=== PATIENT | male | born 2000 | race Caucasian/White ===

== ENCOUNTER 2022-11-14 09:04 | Inpatient (IN) | payer OTHER, SELFPAY ==
[2022-11-14 09:15] VITALS: BP 127/81; PULSE 89; RESP 16; TEMP 36.6; O2SAT 99; BMI 24.2
--- NOTE | 2022-11-14 09:33 | CRLHL7_ITS ---
For Patients: As a result of the Century Cures Act, medical imaging exams and procedure reports are released immediately into your electronic medical record. You may view this report before your referring provider. If you have questions, please contact your health care provider. INDICATION: Swelling. TECHNIQUE: Three views of the right foot were obtained. COMPARISON : None. FINDINGS: There is swelling of the foot soft tissues. There are findings suspicious for a small bone excrescence emanating from the dorsal surface of the 1st metatarsal proximal metaphysis seen on the lateral exam which may be the sequelae of old trauma or possibly osteochondroma. Bone density is normal. No fracture or osteonecrosis is identified. The joints of the hindfoot, midfoot and forefoot are unremarkable. IMPRESSION: 1. No acute bone or joint abnormality. 2. Soft tissue swelling. 3. Findings suspicious for small bone excrescence emanating from the dorsal surface of the 1st toe proximal metaphysis possibly the sequelae of previous trauma or osteochondroma. Dictated by Tucker Smith MD @ 11/14/2022 9:59:43 AM (Electronically Signed)
--- NOTE | 2022-11-14 09:34 | ED_ITS ---
HPI - Extremity Injury (Lower) General Chief Complaint: Extremity Pain/Injury, Lower Stated Complaint: Rt foot infected Time Seen by Provider: 11/14/22 09:27 History of Present Illness HPI Narrative: Patient is a 22-year-old gentleman who overall is in good health who unfortunately scraped his right foot in [place] 5 days ago. He developed redness over the lateral superior aspect of the foot he was placed on Bactrim and doxycycline 2 days ago. The redness has worsened the swelling has worsened and the pain has worsened. Pain is moderate and localized to the superior labs are all aspect of the right foot. Patient has had some nausea and vomiting as well as general malaise. Related Data Home Medications Medication Instructions Recorded Confirmed bupropion HCl 300 mg 24 hr tablet, 300 mg PO QAM 11/11/22 11/14/22 extended release (Wellbutrin XL) lithium carbonate 300 mg capsule 300 mg PO .ud 11/11/22 11/14/22 Previous Rx's Medication Instructions Recorded doxycycline hyclate 100 mg capsule 100 mg PO BID 10 days #20 caps 11/11/22 sulfamethoxazole 800 2 tab PO BID 10 days #40 tabs 11/12/22 mg-trimethoprim 160 mg tablet (Bactrim DS) Allergies Allergy/AdvReac Type Severity Reaction Status Date / Time No Known Drug Allergies Allergy Verified 11/12/22 08:19 Review of Systems Status of ROS: Reports: 10 or more systems reviewed and unremarkable except as noted in History and below [facility] Social History Smoking Status: Never smoker Exam Narrative: Exam Narrative: EXAM GENERAL: Patient appears comfortable and well. EYES: No scleral icterus. ENT: Tympanic membranes and oropharynx normal. THYROID: no thyroid nodules or thyromegaly. LYMPH: No supraclavicular or cervical lymphadenopathy. SKIN: Visible skin seen during exam normal or with benign process only. EXT: Redness and swelling noted over the superior lateral foot on the right. This extends to the anterior aspect of the right ankle. HEART: Regular rate and rhythm with no murmurs, rubs, or gallops. LUNGS: Clear to auscultation bilaterally with no crackles or wheezes. ABD: Soft, non tender, non distended. PSYCH: Good eye contact, speech is not pressured. Const: Vital Signs, click to edit/add: Vital Signs - 24 hr 11/14/22 09:15 Temperature 98 F Pulse Rate [Pulse Oximeter] 89 Respiratory Rate 16 Blood Pressure [Ri ght Upper Arm] 127/81 Pulse Oximetry 99 Oxygen Delivery Me thod Room Air Course Course Hospital Course: Patient seen examined x-ray of the right foot CRP ESR CBC basic metabolic panel blood cultures x2 collected. Vital Signs Vital signs: Initial Vital Signs Temperature 98 F 11/14/22 09:15 Temperature Source Temporal Artery Scan 11/14/22 09:15 Pulse Rate 89 11/14/22 09:15 Respiratory Rate 16 11/14/22 09:15 Blood Pressure 127/81 11/14/22 09:15 Blood Pressure Mean 96 11/14/22 09:15 Blood Pressure Position Supine 11/14/22 09:15 Pulse Oximetry 99 11/14/22 09:15 Oxygen Delivery Method Room Air 11/14/22 09:15 Vital Signs Temperature 98 F 11/14/22 09:15 Pulse Rate 89 11/14/22 09:15 Respiratory Rate 16 11/14/22 09:15 Blood Pressure 127/81 11/14/22 09:15 Pulse Oximetry 99 11/14/22 09:15 Oxygen Delivery Method Room Air 11/14/22 09:15 Temperature 98 F 11/14/22 09:15 Pulse Rate 89 11/14/22 09:15 Respiratory Rate 16 11/14/22 09:15 Blood Pressure 127/81 11/14/22 09:15 Pulse Oximetry 99 11/14/22 09:15 Oxygen Delivery Method Room Air 11/14/22 09:15 MDM - Extremity Injury (Lower) MDM Narrative Medical decision making narrative: Patient is a 22-year-old gentleman comes in today with cellulitis of his right foot. He scraped his foot in a pond in [facility] near [place] over the weekend. He has failed doxycycline and Bactrim. We did collect blood cultures as well as laboratory studies sedimentation rate and CRP were elevated. I did review his x-ray which does not appear to show any acute abnormalities. I did speak with the hospitalist and they are accepting patient for further treatment including IV antibiotics and possible MRI of the foot. Differential Diagnosis Differential diagnosis: Likely ankle sprain and strain, acute internal derangement of knee, puncture wound of foot and fracture of toe Lab Data Labs: Lab Results 11/14/22 Range/Units 10:00 WBC 7.86 (4.50-11.00) K/uL RBC 4.66 (4.30-5.90) m/uL Hgb 14.4 (13.5-17.5) gm/dL Hct 43.1 (37.0-53.0) % MCV 93 (80-100) fL MCH 31 (26-34) pg MCHC 33 (32-36) gm/dL RDW Coeff of Josefina 12.3 (11.5-15.5) % Plt Count 269 (140-440) K/uL Neut % (Auto) 80.8 H (42.0-72.0) % Lymph % (Auto) 10.7 L (20-44) % Upson % (Auto) 7.1 (0.0-11.0) % Eos % (Auto) 1.3 (0.0-7.0) % Baso % (Auto) 0.1 (0.0-3.0) % Neut # (Auto) 6.40 (1.7-7.0) K/uL Lymph # (Auto) 0.80 L (0.90-2.90) K/uL Upson # (Auto) 0.60 (0.00-0.90) K/UL Eos # (Auto) 0.10 (0.00-0.50) K/uL Baso # (Auto) 0.01 (0.00-0.30) K/uL ESR 22 H (2-15) mm/hr Sodium 139 (135-149) mmol/L Potassium 4.6 (3.6-5.1) mmol/L Chloride 99 (96-114) mmol/L Carbon Dioxide 28 (20-32) mmol/L BUN 18 (5-24) mg/dL Creatinine 1.3 (0.5-1.5) mg/dL Estimated Creat Clear 79.07 Estimated GFR 79 ml/min Glucose 87 (60-115) mg/dL Calcium 10.1 (8.4-10.6) mg/dL C-Reactive Protein 5.3 H (0.5-1.0) mg/dL Discharge Plan Discharge Clinical Impression: Cellulitis Patient Disposition: Admitted As Inpatient Condition: Stable Activity Level: No Restrictions Discharge Diet: Regular Prescriptions: No Action lithium carbonate 300 mg capsule 300 mg PO .ud Rx Instructions: 2 capsules qam/ 3 capsules at qhs bupropion HCl [Wellbutrin XL] 300 mg tablet extended release 24 hr 300 mg PO QAM doxycycline hyclate 100 mg capsule 100 mg PO BID 10 Days Qty: 20 0RF sulfamethoxazole-trimethoprim [Bactrim DS] 800-160 mg tablet 2 tab PO BID 10 Days Qty: 40 0RF Follow Up/Referrals: Jose R Chen MD [Primary Care Provider] -
--- NOTE | 2022-11-14 09:37 | ED.NURSE ---
Headsup to House Sup regarding admission.
[2022-11-14 10:19] LABS: Basophils Absolute Auto 0.01 K/uL (0.00-0.30); Basophils Percent Auto 0.1 % (0.0-3.0); Eosinophils Percent Auto 1.3 % (0.0-7.0); Hematocrit 43.1 % (37.0-53.0); Hemoglobin* 14.4 gm/dL (13.5-17.5); Lymphocytes Percent Auto 10.7 % (20-44); Mean Corpuscular HGB Conc 33 gm/dL (32-36); Mean Corpuscular Hemoglobin 31 pg (26-34); Mean Corpuscular Volume 93 fL (80-100); Monocytes Percent Auto 7.1 % (0.0-11.0); Neutrophils Percent Auto 80.8 % (42.0-72.0); Platelet Count* 269 K/uL (140-440); RDW Coefficient of Variation % 12.3 % (11.5-15.5); Red Blood Count 4.66 m/uL (4.30-5.90); White Blood Count* 7.86 K/uL (4.50-11.00)
[2022-11-14 10:24] LABS: Slide Review Reflex No
[2022-11-14 10:30] LABS: Chloride* 99 mmol/L (96-114); Potassium* 4.6 mmol/L (3.6-5.1); Sodium* 139 mmol/L (135-149)
[2022-11-14 10:32] LABS: Creatinine* 1.3 mg/dL (0.5-1.5); Est. Creatinine Clearance* 79.07; Estimated Glomerular Filt Rate 79 ml/min
[2022-11-14 10:33] LABS: Blood Urea Nitrogen* 18 mg/dL (5-24); Carbon Dioxide* 28 mmol/L (20-32); Glucose* 87 mg/dL (60-115)
[2022-11-14 10:34] LABS: Calcium* 10.1 mg/dL (8.4-10.6)
[2022-11-14 10:36] LABS: C Reactive Protein* 5.3 mg/dL (0.5-1.0)
[2022-11-14 11:00] LABS: Erythrocyte SedimentationRate* 22 mm/hr (2-15)
--- NOTE | 2022-11-14 11:42 | ED.NURSE ---
Report given to M/S RN.
[2022-11-14 12:00] VITALS: O2SAT 96
--- NOTE | 2022-11-14 12:47 | P.IMHP_ITS ---
Hospitalist- H&P: HPI History of Present Illness Date Seen: 11/14/22 Chief complaint: Rt foot infected Narrative: Clay Gibson is a 22 year old male presented to the emergency room today for persistent erythema and pain of his right foot. Patient was [place] near [place] last weekend, hit his foot on something and initially thought he had just jammed his right 5th toe, but then noted a small cut on bottom of his foot. 2 days after swimming, he had significant pain over the bottom of the foot, in addition to erythema and edema. He was seen in the urgent care, given an injection of PCN, then an Rx for doxycycline. He was unable to get the doxycycline, so he really turned to urgent care and was given prescription of Bactrim. He has had 4 doses of Bactrim, but symptoms have persisted. This morning, he also noted nausea and headache and vomited once prior to ER arrival. ER Course and Findings: - normal WBC, elevated CRP and ESR - no acute abnormalities on x-ray Patient admitted to the hospital given failure of outpatient antibiotics and worsening clinical symptoms. Medical history updated below. Last Td2012. Review of Systems Status of ROS: Reports: 10 or more systems reviewed and unremarkable except as noted in History and below Narrative: No chest pain, no dyspnea, no other skin concerns Nausea has improved and he has ordered lunch upon arrival to the floor [facility] Medical History (Updated 11/14/22 @ 13:54 by Shivani Zaragoza MD) Bipolar 1 disorder ?F31.9 - Bipolar disorder, unspecified (ICD-10) Social History (Updated 11/14/22 @ 13:53 by Shivani Zaragoza MD) Narrative: Patient lives with father in [place], working for [employer]. Nonsmoker, rare EtOH. Father Leroy would be medical decision maker if needed. Full code. Highest level of school completed/degree received: Bachelor's degree Smoking Status: Never smoker Do you use any of these nicotine containing products: None How often do you have a drink containing alcohol: never How often do you have six or more drinks on one occasion: Never AUDIT-C Alcohol total score: 0 Non-prescribed substance use: denies use Caffeine: Yes (1 cup daily) service: No Meds Home Medications and Allergies Home Medications Medication Instructions Recorded Confirmed Type bupropion HCl 300 mg 24 hr tablet, 300 mg PO QAM 11/11/22 11/14/22 History extended release (Wellbutrin XL) lithium carbonate 300 mg 600 - 900 mg PO BID 11/14/22 11/14/22 History tablet,extended release Allergies Allergy/AdvReac Type Severity Reaction Status Date / Time No Known Drug Allergies Allergy Verified 11/12/22 08:19 Exam Narrative: Exam Narrative: GEN: Alert and oriented, nontoxic HEENT: Normal external ears, EOMIs bilaterally, no scleral icterus CV: RRR, No concerning murmurs, rubs, or gallops R: LCTA bilaterally without concerning wheezing, air movement adequate Ext: wwp, no concerning edema Skin: Erythema and edema of distal/lateral R foot. This has been outlined. There is a small puncture at the base of the 5th toe that is not draining. On the top of the foot, there is induration without fluctuance and significant tenderness to palpation. No crepitus Neuro: No focal deficits, no resting to Psych: Appropriate Const: Vital Signs, click to edit/add: Vital Signs - 24 hr 11/14/22 09:15 Temperature 98 F Pulse Rate [Pulse Oximeter] 89 Respiratory Rate 16 Blood Pressure [Ri ght Upper Arm] 127/81 Pulse Oximetry 99 Oxygen Delivery Me thod Room Air Hospitalist - H&P: Result Labs Labs: Short CBC 11/14/22 Range/Units 10:00 WBC 7.86 (4.50-11.00) K/uL Hgb 14.4 (13.5-17.5) gm/dL Hct 43.1 (37.0-53.0) % Plt Count 269 (140-440) K/uL BMP 11/14/22 10:00 Sodium 139 Potassium 4.6 Chloride 99 Carbon Dioxide 28 BUN 18 Creatinine 1.3 Glucose 87 Calcium 10.1 Assessment and Plan Assessment and plan (1) Cellulitis: Problem comment: - after sustaining a puncture lesion while [place], failed outpatient Bactrim - will cover with vancomycin and cefepime - MRI ordered to assess for abscess, ortho consulted - Tdap updated Status: Acute
--- NOTE | 2022-11-14 12:51 | CRLHL7_ITS ---
For Patients: As a result of the Century Cures Act, medical imaging exams and procedure reports are released immediately into your electronic medical record. You may view this report before your referring provider. If you have questions, please contact your health care provider. INDICATION: Right foot cellulitis. Evaluate for abscess. TECHNIQUE: Multiplanar, multi sequence precontrast and postcontrast enhanced MRI scan of the right forefoot was performed. 15 mL of Dotarem was administered intravenously. COMPARISON: Right foot radiograph 11/14/2022 at 9:43 a.m. FINDINGS: Diffuse swelling, edema and enhancement of the subcutaneous tissues of the forefoot is consistent with cellulitis. There is an apparent skin wound within the 4th interdigital webspace. There is mixed signal material with multiple signal voids tracking from the interdigital webspace defect, proximally along the 5th proximal phalanx and 5th metatarsal phalangeal joint. This signal void tract communicates with a complex collection measuring 3.5 cm long by 1.5 cm AP by 1.9 cm transverse within the dorsal lateral subcutaneous tissues adjacent to the 5th metatarsophalangeal joint. This collection is heterogeneous, has irregular margins and contains areas of signal void. These changes may be the sequela of recent surgical intervention with cavity evacuation and subsequent hemorrhage, postoperative air and/or surgical packing. If no surgical intervention has been performed, then the findings are suspicious for a complex abscess containing blood products and/or gas. In such case, necrotizing fasciitis could not be excluded. Increased signal within the 5th proximal phalanx on STIR and enhanced scans is indeterminate and may be secondary to osteomyelitis or artifact. IMPRESSION : 1. Fore foot cellulitis. 2. Complex heterogeneous signal irregular collection measuring 3.5 cm x 1.5 cm x 1.9 cm within the dorsal lateral subcutaneous tissues adjacent to the 5th toe metatarsophalangeal joint. This may be the sequelae of recent surgical intervention with cavity evacuation and subsequent hemorrhage, postoperative air and/or surgical packing. If no surgical intervention has been performed and the findings are suspicious for a complex abscess containing blood products and/or gas. In such case, necrotizing fasciitis could not be excluded. 3. Indeterminate increased signal within the 5th toe proximal phalanx. Osteomyelitis cannot be excluded. Note: I personally discussed these findings with Dr. Morfin at 7 p.m. EST on 11/14/2022 via telephone conference call. Dictated by Tucker Smith MD @ 11/14/2022 6:10:24 PM (Electronically Signed)
[2022-11-14 13:13] VITALS: BP 128/84; PULSE 85; RESP 16; TEMP 36.8; O2SAT 96; BMI 24.0
[2022-11-14] MEDS: CEFEPIME HCL 2 GM in 0.9 % SODIUM CHLORIDE Mini-bag 100 ML IVPB ×2 (14:05→22:16)
[2022-11-14] MEDS: TETANUS/DIPHTH/PERTUSSIS 0.5 ML SYRINGE IM (14:43)
[2022-11-14 15:00] VITALS: BP 126/79; PULSE 94; RESP 16; TEMP 36.7; O2SAT 98
--- NOTE | 2022-11-14 15:05 | PC.NURSE ---
shift note: pt to floor via WC from ED @ 1200. Pt denies pain. pt denies n/v. Rt outer foot cellulitis/swelling marked by Dr. Zaragoza. vss stable. pt afeb. Lt deltoid tetnus given. IV patent to lt AC.
--- NOTE | 2022-11-14 18:45 | W.PM.CROSSCO ---
Subjective Subjective Interval history: IMPRESSION : 1. Fore foot cellulitis. 2. Complex heterogeneous signal irregular collection measuring 3.5 cm x 1.5 cm x 1.9 cm within the dorsal lateral subcutaneous tissues adjacent to the 5th toe metatarsophalangeal joint. This may be the sequelae of recent surgical intervention with cavity evacuation and subsequent hemorrhage, postoperative air and/or surgical packing. If no surgical intervention has been performed and the findings are suspicious for a complex abscess containing blood products and/or gas. In such case, necrotizing fasciitis could not be excluded. 3. Indeterminate increased signal within the 5th toe proximal phalanx. Osteomyelitis cannot be excluded. Discussed case with Orthopaedic Surgery, Radiologist, and family. Will add zosyn to antibiotic regimen, check stat lactate, and transfer to tertiary medical center once hospital found
[2022-11-14 19:00] VITALS: RESP 16; TEMP 36.8
[2022-11-14] MEDS: PIPERACILLIN/TAZOBACTAM 4.5 GM in 0.9 % SODIUM CHLORIDE Mini-bag 100 ML IVPB (19:06)
[2022-11-14 19:11] LABS: Lactate* 1.8 mmol/L (0.5-1.9)
[2022-11-14] MEDS: LITHIUM CARBONATE 300 MG 900 EACH PO (21:25)
[2022-11-14] MEDS: SODIUM CHLORIDE 0.9 % (FLUSH) 10 ML SYRINGE 5 ML IVF (22:16)
[2022-11-14 23:00] VITALS: BP 108/70; PULSE 84; RESP 16; TEMP 37.1; O2SAT 99
--- NOTE | 2022-11-15 04:49 | PC.NURSE ---
[id number] Shift Summary? 89 C.F. 22 R foot cellulitis? Hx: Bipolar disorder Pt?s vitals were stable all shift. Afebrile. Pain tolerable 2-4/10 to R foot. Declined pain meds and ice. Elevated foot. Warm red swollen foot. Did not spread beyond outline. Bluish tone between 4th and 5th metatarsal. Transferred to [facility] via stretcher and EMS. Report called to nurse. Belongings completed. Several IV abx given. Left with PIV intact. Voided in BR independently. Hops on L foot. Room air. Intermittent facial movements, possibly tardive dyskinesia (on lithium).
== END 2022-11-15 01:03 | disposition short-term general hospital (02) | DRG 603 ==
LOC: ED 11:17 → MEDSURG 11:46
PROVIDERS: Hospitalist; Admitting Provider Family Medicine; Emergency Provider Internal Medicine; PCP Family Medicine; Visit Provider Family Medicine
DX: L03.115 Cellulitis of right lower limb (principal); S91.134A Puncture wound without foreign body of right lesser toe(s) without damage to nail, initial encounter; W22.8XXA Striking against or struck by other objects, initial encounter; Y93.11 Activity, swimming; Y92.828 Other wilderness area as the place of occurrence of the external cause; Y99.8 Other external cause status; F31.9 Bipolar disorder, unspecified
CPT/HCPCS: 36415; 73630; 73720; 80048; 83605; 85025; 85651; 86140; 87040; 90715; 99283; 99285; A0425; A0428; A9575; J0692; J2543; J3370; J7120; S0077